=== PATIENT | male | born 1955 | race Caucasian/White ===

== ENCOUNTER → 2018-03-23 | Outpatient (CLI) | payer BC | LOC: COL.RAD 10:45 | DX: N28.1 Cyst of kidney, acquired (principal) ==

== ENCOUNTER → 2018-06-21 | Outpatient (CLI) | payer BC | LOC: MHCPAIN 08:13 | DX: G89.29 Other chronic pain (principal); M47.817 Spondylosis without myelopathy or radiculopathy, lumbosacral region; M54.16 Radiculopathy, lumbar region; M53.3 Sacrococcygeal disorders, not elsewhere classified | CPT/HCPCS: G0463 ==

== ENCOUNTER 2023-01-08 08:35 | Day surgery (SDC) | payer MEDICARE ==
[~2023-01-08] VITALS: Ht 175.3 cm; Wt 89.0 kg
[~2023-01-08 08:35] MED LIST: CRESTOR20 MG PO; PRINIVIL10 MG PO; PROTONIX 40MG T40 MG PO; TOPROL XL100 MG PO
[2023-01-08 09:39] VITALS: BP 177/86; PULSE 59; TEMP 97.6
[2023-01-08] MEDS ORDERED: FLOMAX 0.40.4 MG/CAP PO (12:01)
[2023-01-08 12:55] VITALS: BP 147/69; PULSE 64; TEMP 97.3
[2023-01-08 13:10] VITALS: BP 145/74; PULSE 72
[2023-01-08 13:25] VITALS: BP 127/70; PULSE 72
--- NOTE | 2023-01-08 13:50 | NUR ---
1255 RETURNS TO ROOM 5 PER CART. AWAKE, ALERT. SITS ON EDGE OF BED, THEN AMBULATES TO BATHROOM WITH STANDBY ASSIST. VOIDS WITHOUT DIFFICULTY. BACK TO CART. VITAL SIGNS OBTAINED. DENIES PAIN. CALL LIGHT AT SIDE. IN ROOM 1310 TOLERATES PO JUICE AND MUFFIN WITHOUT NAUSEA 1325 DISCHARGE INSTRUCTIONS REVIEWED. PATIENT VERBALIZES UNDERSTANDING. COPY PROVIDED IN DISCHARGE FOLDER. 1335 AMBULATES TO BATHROOM WITH STANDBY ASSIST. ADMITS TO VOIDING WITHOUT DIFFICULTY. URINE STRAINED. DENIES PAIN 1340 SITS IN CHAIR AT BEDSIDE. DRESSES SELF
[2023-01-08 14:43] VITALS: BP 147/67; PULSE 59
== END 2023-01-08 13:52 | disposition home or self-care (01) ==
LOC: SDCO 08:35
DX: N20.1 Calculus of ureter (principal); R97.20 Elevated prostate specific antigen [PSA]
CPT/HCPCS: J0360; J0690; J2405; J2704; J7120